=== PATIENT | female | born 1985 | race Caucasian/White ===

== ENCOUNTER 2018-03-23 19:56 | Emergency (ER) | payer OTHER ==
[2018-03-23] MEDS ORDERED: Acetaminophen TAB* 325 MG PO ONE (22:09)
[2018-03-23] MEDS ORDERED: Morphine INJ* 4 MG/ML 1 ML SYRINGE (NEW SYRINGE VERSION) IV ONE (22:09)
[2018-03-23] MEDS ORDERED: Ibuprofen TAB* 800 MG PO ONE (22:09)
[2018-03-23] MEDS ORDERED: Levofloxacin 500 MG IVPREMIX(* 500 MG/100 ML BAG IVPB ONE (22:10)
[2018-03-23] MEDS ORDERED: Metoclopramide IV* 5 MG/ML 2 ML VIAL IV SLOW PU ONE (22:10)
--- NOTE | 2018-03-23 22:30 | ED ---
GI/ HPI - HPI Summary HPI Summary: Patient is a 32 y/o F w/ c/o RLQ pain which radiates to the right side of her back. Pain onset yesterday. Fever and N/V are noted to onset today. She denies PSHx of caesarean sections, PMHx of kidney infections. On triage, pain is rated 7/10 and nothing is noted to aggravate/alleviate Sx. Home medications and allergies are reviewed. - History of Current Complaint Chief Complaint: EDAbdPain Time Seen by Provider: 03/23/18 22:02 Stated Complaint: ABD PAIN Hx Obtained From: Patient Hx Last Menstrual Period: 10/24/15 Onset/Duration: Started Hours Ago - fever, nausea, vomiting onset today, Started Days Ago - pain onset yesterday, Still Present Timing: Constant, Lasting Hours - nausea, vomiting, fever, Lasting Days - RLQ pain, back pain Current Severity: Severe - 7/10 Pain Intensity: 7 Location of Pain: Radiates to: - right lower back, RLQ Pain Radiates to: Back - right lower Associated Signs and Symptoms: Positive: Back Pain - right lower, Nausea, Vomiting, Fever, Abdominal Pain - RLQ Aggravating Factor(s): Nothing Alleviating Factor(s): Nothing - Allergy/Home Medications Allergies/Adverse Reactions: Allergies Allergy/AdvReac Type Severity Reaction Status Date / Time No Known Allergies Allergy Verified 03/23/18 20:00 PMH/Surg Hx/FS Hx/Imm Hx Endocrine/Hematology History: Reports: Hx Thyroid Disease - hyperthyroid, Other Endocrine/Hematological Disorders - tHYROID NODULES, 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 , ALL BENIGN Denies: Hx Diabetes, Hx Anemia Cardiovascular History: Denies: Hx Hypertension Respiratory History: Denies: Hx Asthma, Hx Chronic Obstructive Pulmonary Disease (COPD) GI History: Denies: Hx Jaundice, Hx Ulcer History: Denies: Hx Kidney Infection Sensory History: Denies: Hx Contacts or Glasses Opthamlomology History: Denies: Hx Contacts or Glasses Psychiatric History: Reports: Hx Anxiety - Surgical History Surgery Procedure, Year, and Place: 3 C SECTIONS Infectious Disease History: No Infectious Disease History: Denies: Hx Hepatitis, Hx Human Immunodeficiency Virus (HIV), Traveled Outside the [place] in Last 30 Days - Family History Known Family History: Negative: Blood Disorder - Social History Alcohol Use: Rare Substance Use Type: Reports: None Smoking Status (MU): Never Smoked Tobacco Type: Cigarettes Amount Used/How Often: daily Have You Smoked in the Last Year: Yes Review of Systems Positive: Fever Positive: Abdominal Pain - RLQ , Vomiting, Nausea Positive: Other - POSITIVE: right lower back pain All Other Systems Reviewed And Are Negative: Yes Physical Exam - Summary Physical Exam Summary: VITAL SIGNS: Reviewed. GENERAL: Patient is a well-developed and nourished female who is lying comfortable in the stretcher. Patient is not in any acute respiratory distress. Right CVA tenderness HEAD AND FACE: No signs of trauma. No ecchymosis, hematomas or skull depressions. No sinus tenderness. EYES: PERRLA, EOMI x 2, No injected conjunctiva, no nystagmus. EARS: Hearing grossly intact. Ear canals and tympanic membranes are within normal limits. MOUTH: Oropharynx within normal limits. NECK: Supple, trachea is midline, no adenopathy, no JVD, no carotid bruit, no c- spine tenderness, neck with full ROM. CHEST: Symmetric, no tenderness at palpation LUNGS: Clear to auscultation bilaterally. No wheezing or crackles. CVS: tachycardic, S1 and S2 present, no murmurs or gallops appreciated. ABDOMEN: Soft, RLQ tenderness. No signs of distention. No rebound no guarding, and no masses palpated. Bowel sounds are normal. EXTREMITIES: FROM in all major joints, no edema, no cyanosis or clubbing. NEURO: Alert and oriented x 3. No acute neurological deficits. Speech is normal and follows commands. SKIN: Dry and warm Triage Information Reviewed: Yes Vital Signs On Initial Exam: Initial Vitals Temp Pulse Resp BP Pulse Ox 99.4 F 109 18 128/71 100 03/23/18 19:58 03/23/18 19:58 03/23/18 19:58 03/23/18 19:58 03/23/18 19:58 Vital Signs Reviewed: Yes Diagnostics - Vital Signs Vital Signs Temp Pulse Resp BP Pulse Ox 03/23/18 21:48 103.5 F 111 18 116/70 98 03/23/18 19:58 99.4 F 109 18 128/71 100 - Laboratory Result Diagrams: 03/23/18 22:18 03/23/18 22:19 Lab Statement: Any lab studies that have been ordered have been reviewed, and results considered in the medical decision making process. Re-Evaluation - Re-Evaluation First Eval Re-Evaluation Time: 00:16 Change: Improved Comment: patient reports feeling better. She will be discharged to home and was instructed to follow up with PCP in 1-2 days. Patient understands and agrees with this plan. GIGU Course/Dx - Course Assessment/Plan: Patient is a 32 y/o F w/ c/o RLQ pain which radiates to the right side of her back. Pain onset yesterday. Fever and N/V are noted to onset today. She denies PSHx of caesarean sections, PMHx of kidney infections. On triage, pain is rated 7/10 and nothing is noted to aggravate/alleviate Sx. Physical exam showed RLQ and right CVA tenderness as well as tachycardia. During ED course, patient was given morphine 4 mg IV ONCE, reglan 10 mg IV SLOW PU ONCE, levaquin 500 mg IVpremix, lactated Ringers 1840 ml, 30 ml/kg IV WIDE OPEN ONE, motrin tab 800 mg PO ONCE, and Tylenol 975 mg PO ONCE. Bloodwork showed sodium 134, lactic acid .7, AST 12, CRP 23,91, total protein 6.3. UA showed urine protein 1+(30 mg/dl), trace urine ketones, 3+ urine leukocyte esterase, 3+ (>20/hpf) urine WBC, 3+(>10/hpf) urine RBC, urine squamous epith cells were present, urine yeast was present, urine bacteria absent and urine glucose negative. 0016 patient reports feeling better. She will be discharged to home and was instructed to follow up with PCP in 1-2 days. Patient understands and agrees with this plan. Dx of right pyelonenephritis. - Diagnoses Provider Diagnoses: Pyelonephritis Discharge - Sign-Out/Discharge Documenting (check all that apply): Patient Departure - DISCHARGE - Discharge Plan Condition: Stable Disposition: HOME Prescriptions: Ibuprofen TAB* [Motrin TAB* 800 MG] 800 mg PO Q6H PRN #30 tab PRN Reason: Fever/Pain Levofloxacin TAB* [Levaquin TAB*] 500 mg PO DAILY #10 tab oxyCODONE/Acetamin 5/325 MG* [Percocet 5/325 TAB*] 1 tab PO Q6H PRN #14 tab MDD 4 PRN Reason: Pain Patient Education Materials: Kidney Infection (ED) Referrals: Lena Mata NP [Primary Care Provider] - 2 Days Additional Instructions: RETURN TO THE EMERGENCY DEPARTMENT FOR CHANGING OR WORSENING SYMPTOMS. FOLLOW UP WITH PRIMARY CARE PHYSICIAN IN 1-2 DAYS. - Attestation Statements Document Initiated by Scribe: Yes Documenting Scribe: Teja Wiley Provider For Whom Scribe is Documenting (Include Credential): Camden Esparza MD Scribe Attestation: I, Teja Wiley , scribed for Camden Esparza MD on 03/24/18 at 0035.
[2018-03-23 22:31] LABS: ABS Basophils 0 10^3/ul (0-0.2); ABS Eosinophils 0 10^3/ul (0-0.6); ABS Lymphocytes 0.5 10^3/ul (1.0-4.8); ABS Monocytes 0.9 10^3/ul (0-0.8); ABS Neutrophils 9.4 10^3/ul (1.5-7.7); ABS Nucleated RBC 0 10^3/ul; Eosinophil % 0 % (0-6); Hematocrit 35 % (35-47); Hemoglobin 12.1 g/dl (12.0-16.0); Lymphocyte % 4.9 % (25-47); Mean Corpuscular HGB Conc 35 g/dl (31-36); Mean Corpuscular Hemoglobin 29 pg (27-31); Mean Corpuscular Volume 84 fL (80-97); Mean Platelet Volume 8.7 um3 (7.4-10.4); Nucleated Red Blood Cells % 0; Platelet Count 155 10^3/ul (150-450); Red Blood Count 4.14 10^6/ul (4.00-5.40); Red Cell Distribution Width 13 % (10.5-15); White Blood Count 10.8 10^3/ul (3.5-10.8)
[2018-03-23 22:42] LABS: Urine Appearance Cloudy; Urine Blood Negative (Negative); Urine Color Yellow; Urine Ketones Trace (Negative); Urine Protein 1+(30 mg/dL) (Negative); Urine Red Blood Cell 3+(>10/hpf) (Absent); Urine Specific Gravity 1.014 (1.010-1.030); Urine Urobilinogen Negative (Negative); Urine White Blood Cell 3+(>20/hpf) (Absent)
[2018-03-23 22:50] LABS: EGFR Non-African American 79.1 (>60)
[2018-03-23] MEDS: Lactated Ringers 1000 ml Bag*IV.FLUID IV ONE (23:08)
[2018-03-24 00:31] VITALS: BP 102/56
--- NOTE | 2018-03-24 12:42 | ED ---
Progress - Progress Note Progress Note: Patient's preliminary anaerobic blood culture reveals gram-negative bacilli. Spoke with microbiology staff who report her aerobic blood culture has not completed it's cycle yet however her urine culture is revealing gram-negative bacteria. Lab feels this is a positive finding despite the results of the 2nd bottle. She was seen last night and diagnosed with pyelonephritis. She received a course of Levaquin IV here and sent home with PO antibiotics. There is concern for septic infection. Attempted to contact patient - no answer so left message to call. Then attempted to contact patient's next of kin (Judy, mom) - no answer, so left message to call here as well. Will mail letter as well. hospital television rental clerknadeen trevizo. Re-Evaluation - Re-Evaluation First Eval Re-Evaluation Time: 00:16 Change: Improved Comment: patient reports feeling better. She will be discharged to home and was instructed to follow up with PCP in 1-2 days. Patient understands and agrees with this plan. Course/Dx - Diagnoses Provider Diagnoses: Pyelonephritis Discharge - Sign-Out/Discharge Documenting (check all that apply): Post-Discharge Follow Up - Discharge Plan Condition: Stable Disposition: HOME Prescriptions: Ibuprofen TAB* [Motrin TAB* 800 MG] 800 mg PO Q6H PRN #30 tab PRN Reason: Fever/Pain Levofloxacin TAB* [Levaquin TAB*] 500 mg PO DAILY #10 tab oxyCODONE/Acetamin 5/325 MG* [Percocet 5/325 TAB*] 1 tab PO Q6H PRN #14 tab MDD 4 PRN Reason: Pain Patient Education Materials: Kidney Infection (ED) Referrals: Lena Mata NP [Primary Care Provider] - 2 Days Additional Instructions: RETURN TO THE EMERGENCY DEPARTMENT FOR CHANGING OR WORSENING SYMPTOMS. FOLLOW UP WITH PRIMARY CARE PHYSICIAN IN 1-2 DAYS. - Billing Disposition and Condition Condition: STABLE Disposition: Home
== END 2018-03-24 00:37 | disposition home or self-care (01) ==
LOC: ED 19:56
DX: N12 Tubulo-interstitial nephritis, not specified as acute or chronic (principal); R42 Dizziness and giddiness; R53.1 Weakness; M54.9 Dorsalgia, unspecified; R50.9 Fever, unspecified
CPT/HCPCS: 36415; 80053; 81003; 81015; 83605; 85025; 86140; 87040; 87077; 87086; 87186; 87205; 96365; 96366; 99284; A9270-GY; J1956; J2270; J2765

== ENCOUNTER 2018-03-24 13:41 | Inpatient (IN) | payer OTHER ==
[2018-03-24] MEDS ORDERED: NS 0.9% 1000 ML*IV.FLUID IV ONE (14:06)
[2018-03-24] MEDS ORDERED: cefTRIAXone(*) 1 GM in NS 0.9% 50 ML* 50 ML IVPB ONE (14:06)
[2018-03-24] MEDS ORDERED: Morphine INJ* 4 MG/ML 1 ML SYRINGE (NEW SYRINGE VERSION) IV ONE (14:23)
[2018-03-24] MEDS ORDERED: Ondansetron INJ* 2 MG/ML VIAL IV ONE (14:23)
--- NOTE | 2018-03-24 14:26 | ED ---
Sepsis HPI - HPI Summary HPI Summary: Patient was called to return to the ED for positive blood culture findings. She was found to have gram-negative bacteria in her anaerobic blood culture from last night. Last night, she was diagnosed with right-sided pyelonephritis , provided w/ IV fluids, IV levaquin and discharged home with Levaquin by mouth. She reports she was also given oxycodone for pain which she has not taken since this morning. She reports pain a 6 out of 10 at this current time as well as chills with rigors. Has not had ibuprofen or acetaminophen prior to arrival. Has had decreased appetite but no gemma vomiting or diarrhea. When called to return to ED today, she reports dizziness and generalized weakness. Leading up to sx, she reports urinary frequency past few days as her only symptom however no abdominal pain, dysuria or hematuria and no procedures (ie. urinary catheterization, etc). She reports she came in last night with sx of RLQ pain radiating to flank as well as N/V and fever which started yesterday prior to arrival. No known h/o UTI/urinary tract stones. Last ate at 11:00am (bagel) H/o w/ tubal ligation and no difficulty with anesthesia Denies cardiac, pulmonary and/or hematologic d/o Has a partial dental piece - History of Current Complaint Chief Complaint: EDGeneral Time Seen by Provider: 03/24/18 14:02 Stated Complaint: + SEPSIS Hx Obtained From: Patient, Family/Pharmacy Picking Technician - mom Hx Last Menstrual Period: 10/24/15 Pain Intensity: 6 - Allergy/Home Medications Allergies/Adverse Reactions: Allergies Allergy/AdvReac Type Severity Reaction Status Date / Time No Known Allergies Allergy Verified 03/24/18 13:51 PMH/Surg Hx/FS Hx/Imm Hx Previously Healthy: Yes Endocrine/Hematology History: Reports: Hx Thyroid Disease - hyperthyroid, Other Endocrine/Hematological Disorders - tHYROID NODULES, 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 , ALL BENIGN Denies: Hx Diabetes, Hx Anemia Cardiovascular History: Denies: Hx Congenital Heart Disease, Hx Hypertension, Hx Myocardial Infarction, Hx Valvular Heart Disease Respiratory History: Denies: Hx Asthma, Hx Chronic Obstructive Pulmonary Disease (COPD) GI History: Denies: Hx Jaundice, Hx Ulcer History: Denies: Hx Kidney Infection, Hx Kidney Stones Sensory History: Denies: Hx Contacts or Glasses Opthamlomology History: Denies: Hx Contacts or Glasses Psychiatric History: Reports: Hx Anxiety - Surgical History Surgery Procedure, Year, and Place: 3 C SECTIONS, tubal ligation Infectious Disease History: No Infectious Disease History: Denies: Hx Hepatitis, Hx Human Immunodeficiency Virus (HIV), Traveled Outside the [place] in Last 30 Days - Family History Known Family History: Positive: Other - uncle w/ uric acid kidney stones Negative: Blood Disorder - Social History Lives: With Family Alcohol Use: Occasionally Hx Substance Use: No Substance Use Type: Reports: None Hx Tobacco Use: Yes Smoking Status (MU): Current Every Day Smoker Type: Cigarettes Amount Used/How Often: daily Length of Time of Smoking/Using Tobacco: 1/2PPD Have You Smoked in the Last Year: Yes Review of Systems Positive: Fever, Chills, Fatigue Eyes: Negative ENT: Negative Cardiovascular: Negative Respiratory: Negative Gastrointestinal: Other - reduced appetite Positive: Abdominal Pain, Nausea. Negative: Vomiting, Diarrhea Positive: see HPI Musculoskeletal: Negative Skin: Negative Neurological: Negative Psychological: Normal All Other Systems Reviewed And Are Negative: Yes Physical Exam Triage Information Reviewed: Yes Vital Signs On Initial Exam: Initial Vitals Temp Pulse Resp BP Pulse Ox 98.3 F 96 17 95/55 97 03/24/18 13:48 03/24/18 13:48 03/24/18 13:48 03/24/18 13:48 03/24/18 13:48 Vital Signs Reviewed: Yes Appearance: Positive: Well-Nourished, Ill-Appearing - pt is wrapped in mulitple blankets w/ rigors Skin: Positive: Warm, Skin Color Reflects Adequate Perfusion, Dry - feverish to touch Head/Face: Positive: Normal Head/Face Inspection Eyes: Positive: Normal, EOMI, Conjunctiva Clear ENT: Positive: Normal ENT inspection, Hearing grossly normal, Pharynx normal - mucosa moist Neck: Positive: Supple, Nontender Respiratory/Lung Sounds: Positive: Clear to Auscultation, Breath Sounds Present. Negative: Rales, Rhonchi, Wheezes Cardiovascular: Positive: Tachycardia, S1, S2. Negative: Murmur, Rub Abdomen Description: Positive: No Organomegaly, Soft, Other: - Rt side TTP - refrained from Rt CVA tapping as she admits this Diagnostics - Vital Signs Vital Signs Temp Pulse Resp BP Pulse Ox 03/24/18 13:48 98.3 F 96 17 95/55 97 - Laboratory Result Diagrams: 03/24/18 14:43 03/24/18 14:43 Lab Statement: Any lab studies that have been ordered have been reviewed, and results considered in the medical decision making process. Sepsis Re-assessment - Sepsis Re-Assessment First Eval Patient's Vitals Signs: Vital Signs Temp Pulse Resp BP Pulse Ox 03/24/18 15:39 106 F 03/24/18 15:17 123 26 110/64 92 03/24/18 14:36 124 18 118/68 95 03/24/18 13:48 98.3 F 96 17 95/55 97 Course/Dx - Course Course Of Treatment: Patient was called to return to the emergency department after blood cultures revealed gram-negative bacteria on her anaerobic blood cx from last night. She was seen with right lower quadrant and Rt flank pain and diagnosed with pyelonephritis. She received one course of IV Levaquin here along with IV fluids last night and reported feeling better after treatments and was sent home w/ PO levaquin and oxycodone. Today, she reports feeling dizzy and weak. Upon arrival she is found to have low blood pressure, normal HR in triage but tachycardic upon auscultation. Delayed cardiopulm monitoring. No fever at triage as well however this was repeated after pt had rigors - jumped to 106F. She reports feeling better at that time w/ morphine, IV fluids and anbx on board. PO meds were held in the event she needed surgery. She was initiated with sepsis protocol upon arrival (i.e. 30 cc/kg normal saline, IV antibiotics, labs). Antibiotic of choice was ceftriaxone given her history however with her fever jumping to 106 and her white count being elevated today from normal limits to 13, Zosyn was added to her regimen (discussed w/ Vasyl Sandoval NP). Toradol held d/t risk of kidney injury and acetaminophen held until cleared for PO w/ sips of water by Dr. Christie as there was high clinical suspicion for possible need of surgical intervention. Her CT abdomen and pelvis reveals a 1.7 cm stone at the UPJ of the right kidney. There is also gas in the bladder and the right renal collecting system along with confirmed pyelonephritis. This was discussed with Dr. Christie. Then discussed with Dr. Rm who does not feel a stent will be effective at this time. Returned call to Dr. Christie requesting percutaneous nephrostomy. Patient will also be admitted to the ICU. Dr. Mayorga and Vasyl Sandoval NP aware. Pt in gaurded/ improved condition at time of transition of care - she is alert, oriented and comfortable however HR remains in the 120's. BP has improved s/p fluids and we' re hoping fever reduces with acetaminophen and drainage of infection. Labs: WBC 13.4, Hgb 11.7, platelets 137, neutrophil percent 89.6, lymph percent 4.9, absolute neuts 12, absolute lymphs 0.7, INR 1.5, APTT 31.2, electrolytes within normal limits with the exception of calcium 8.4. AST 12, lactic acid 2.1, C- reactive protein 132.85, total protein 6.1. UA reveals yellow, turbid urine with a pH of 5.0 and specific gravity of 1.016. Urine protein 2+, negative ketones, 1+ blood negative nitrates/bilirubin/euro bill, 2+ leukocytes, 3+ to be BCs, 3+ RBCs,'s, cells present, bacteria absent, glucose negative. During patient's course of care here, her labs from yesterday were checked. Her preliminary urine culture reveals 10-25,000 Escherichia coli. Critical care time: 45 minutes - Differential Dx/Clinical Impression Provider Diagnosis: Sepsis, Calculus of right kidney, Emphysematous pyelonephritis of right kidney Discharge - Sign-Out/Discharge Documenting (check all that apply): Patient Departure - Discharge Plan Condition: Guarded Disposition: ADMITTED TO [facility] - Billing Disposition and Condition Condition: GUARDED Disposition: Admitted to [facility]
[2018-03-24 14:28] LABS: Urine Appearance Turbid; Urine Blood 1+ (Negative); Urine Color Yellow; Urine Ketones Negative (Negative); Urine Protein 2+(100 mg/dL) (Negative); Urine Red Blood Cell 3+(>10/hpf) (Absent); Urine Specific Gravity 1.016 (1.010-1.030); Urine Urobilinogen Negative (Negative); Urine White Blood Cell 3+(>20/hpf) (Absent)
[2018-03-24 14:51] LABS: ABS Basophils 0 10^3/ul (0-0.2); ABS Eosinophils 0 10^3/ul (0-0.6); ABS Lymphocytes 0.7 10^3/ul (1.0-4.8); ABS Monocytes 0.7 10^3/ul (0-0.8); ABS Nucleated RBC 0 10^3/ul; Eosinophil % 0.1 % (0-6); Hematocrit 35 % (35-47); Hemoglobin 11.7 g/dl (12.0-16.0); Lymphocyte % 4.9 % (25-47); Mean Corpuscular HGB Conc 34 g/dl (31-36); Mean Corpuscular Hemoglobin 29 pg (27-31); Mean Corpuscular Volume 86 fL (80-97); Mean Platelet Volume 8.7 um3 (7.4-10.4); Nucleated Red Blood Cells % 0.1; Platelet Count 137 10^3/ul (150-450); Red Blood Count 4.03 10^6/ul (4.00-5.40); Red Cell Distribution Width 13 % (10.5-15); White Blood Count 13.4 10^3/ul (3.5-10.8)
[2018-03-24 15:01] LABS: INR 1.5 (0.77-1.02)
--- NOTE | 2018-03-24 15:23 | RAD ---
CLINICAL HISTORY: Right flank pain COMPARISON: None TECHNIQUE: Noncontrast CT examination of the abdomen and pelvis from the lung bases through the initial tuberosities. FINDINGS: VISUALIZED LUNG BASES: The visualized lung bases are grossly clear. There is no pleural effusion. Along the inferior margin of the right breast there is an asymmetric 1.3 cm subcutaneous nodule with a Hounsfield unit measuring 17 consistent with fluid (image 12). ABDOMEN AND PELVIS: Evaluation of the solid organs and vasculature is limited without intravenous contrast. The liver, spleen, pancreas and adrenal glands are grossly normal in appearance. The gallbladder is normal. At the left kidney there is a lower pole nonobstructing calcification measuring 2 mm in greatest axial dimension. There is no left-sided hydronephrosis. There is a moderate degree of hydronephrosis at the right kidney. At the superior ureter just beyond the ureteropelvic junction there is a conglomeration of calcification measuring approximately 10 x 11 mm in the axial plane and 17 mm in the cephalocaudal dimension. At the renal pelvis there is foci of gas (axial image 75 and coronal image 41). In the lower pole collecting system of the right kidney there are additional more amorphous calcifications. There is no calcification seen more distally in either ureter or in the urinary bladder. Depicted better in the sagittal plane there is nondependent gas in the urinary bladder (sagittal image 70 and axial image 161). The small and large bowel are not distended.The patient's normal appendix is identified in the right lower quadrant. There is no gross retroperitoneal or mesenteric lymphadenopathy. The pelvic viscera is normal in appearance. The abdominal aorta and iliac arteries are normal in course and diameter. There are no sinister bone lesions. IMPRESSION: 1. There is a moderate degree of right-sided hydronephrosis with a conglomeration of calcification just below the ureteropelvic junction measuring 10 x 11 mm in the axial plane and 17 mm in the cephalocaudal dimension. At the right renal pelvis there are foci of gas and there is also foci of gas in the nondependent lumen of the urinary bladder. The latter finding raises concern for cystitis and pyelonephritis associated with obstructive urinary calculi. 2. Along the inferior margin of the right breast at the 6:00 position there is a 1.3 cm subcutaneous low-attenuation nodule. A benign etiology such as a sebaceous cyst or galactocele is favored. On a nonemergent basis further characterization can be made with ultrasound. Findings were discussed over the telephone with MARIA M James at 1510 hours on March 24, 2018.
[2018-03-24 15:34] LABS: EGFR Non-African American 82.5 (>60)
[2018-03-24] MEDS ORDERED: Acetaminophen TAB* 325 MG PO ONE (15:39)
[2018-03-24] MEDS ORDERED: Piperacillin/Tazobac ADVAN(*) 3.375 GM in NS 0.9% 100 ML* 100 ML IVPB ONE ×2 (15:43→16:27)
[2018-03-24] MEDS ORDERED: Naloxone* 0.4 MG/ML 1 ML VIAL ONE (15:58)
[2018-03-24] MEDS ORDERED: fentaNYL* 50 MCG/ML 5 ML VIAL (250 MCG VIAL) ONE (15:58)
[2018-03-24] MEDS ORDERED: Morphine VIAL* 4 MG/ML VIAL (1 ml vial) IV PRN (16:27)
[2018-03-24] MEDS ORDERED: Ondansetron INJ* 2 MG/ML VIAL IV PRN (16:27)
[2018-03-24] MEDS ORDERED: NS 0.9% 1000 ML* 1,000 ML IV SCH ×2 (16:30→20:45)
[2018-03-24] MEDS ORDERED: Zosyn per Pharmacy* NOTE FOLLOW UP SCH (17:00)
--- NOTE | 2018-03-24 17:46 | RAD ---
CPT II Codes: G9500 PERCUTANEOUS NEPHROSTOMY TUBE PLACEMENT WITH SONOGRAPHIC AND FLUOROSCOPIC GUIDANCE. INDICATION: Obstructive right-sided hydronephrosis with signs of pyelonephritis COMPARISON: CT abdomen pelvis dated March 24, 2018 FLUOROSCOPY TIME: 22 seconds ANESTHESIA AND OTHER PERIOPERATIVE MEDICATIONS: 1% lidocaine locally. Conscious sedation provided by intravenous fentanyl. Continuous cardiopulmonary monitoring was provided by Dr. Christie and IR nursing staff. PROCEDURE NOTE AND IMAGING FINDINGS: The benefits and risks of the procedure explained to the patient. The patient consented to the procedure. The patient was positioned on the fluoroscopy table in the prone position. Preliminary sonographic exam demonstrates a largely dilated right renal collecting system corresponding to the same day CT imaging. Color flow analysis does not show any pulsating arteries in the intended percutaneous percutaneous nephrostomy catheter tract or in the immediate vicinity of the planned drain placement. A formal time out was preformed with the technologist and nursing staff. The intended percutaneous nephrostomy catheter site was prepped and draped in the usual sterile fashion. The patient was given intravenous sedation and local anesthesia with 1% lidocaine. Using ultrasound guidance lower pole calyx was accessed percutaneously with an 18-gauge needle. An ultrasound image was saved confirming correct positioning of the needle tip in the calyx. Under fluoroscopic control a 0.035 inch Amplatz wire was advanced into the renal collecting system under fluoroscopic control. The needle was removed and an 8-Wolof pigtail drainage catheter was inserted into the kidney over the wire under fluoroscopic control. The stiffener and Amplatz were removed and urine was observed draining from the pigtail drainage catheter. A 50 mL urine sample was gently aspirated, capped in a sterile container and sent to the laboratory for analysis. After gently draining as much urine from the collecting system as could easily be expressed dilute contrast was injected to perform a nephrostogram which depicted a severe degree of hydronephrosis. No contrast was seen passing beyond the right UPJ stone. The pigtail loop was correctly positioned in the collecting system, a final nephrostogram confirmed appropriate position, the loop was secured and the catheter was connected to a drainage bag. A "pursestring suture" was tied around the catheter exit site and the suture was then tied to the exiting catheter according to a "Joey sandal" configuration. The site was dressed with sterile gauze and Tegaderm. The patient tolerated the procedure well without incident. The patient was transferred to the ICU in stable condition. IMPRESSION: Uncomplicated placement of an 8 Wolof percutaneous nephrostomy catheter into the right with ultrasound and fluoroscopic guidance as described in the report. PLAN: 1. Percutaneous nephrostomy catheter to gravity. 2. Monitor drain output. 3. Follow-up laboratory samples. 4. Urologic surgery will be evaluating the patient for an upcoming lithotripsy procedure I which time is anticipated the percutaneous approximately catheter will likely be removed.
[2018-03-24 18:23] LABS: Urine Appearance Turbid; Urine Blood 3+ (Negative); Urine Ketones Negative (Negative); Urine Protein 2+(100 mg/dL) (Negative); Urine Red Blood Cell 3+(>10/hpf) (Absent); Urine Specific Gravity 1.006 (1.010-1.030); Urine Urobilinogen Negative (Negative); Urine White Blood Cell 3+(>20/hpf) (Absent)
[2018-03-24 18:24] LABS: Urine Color Red
[2018-03-24] MEDS ORDERED: NS 0.9% 1000 ML* 1,000 ML IV ONE (18:40)
[2018-03-24] MEDS ORDERED: Ibuprofen TAB* 600 MG PO ONE (18:40)
[2018-03-24] MEDS ORDERED: Ketorolac INJ* 15 MG/ML 1 ML VIAL IV PUSH ONE (18:43)
[2018-03-24] MEDS ORDERED: Ketorolac INJ* 15 MG/ML 1 ML VIAL ONE (18:44)
[2018-03-24] MEDS: ZOSYN 3.375 GM Q8H per EXTENDED INFUSION IVPB SCH ×2 (20:04)
[2018-03-24] MEDS: Acetaminophen TAB* 325 MG PO PRN (21:17)
--- NOTE | 2018-03-24 23:02 | HP ---
CC: Dr. Christie; Dr. Freeman * HISTORY AND PHYSICAL: DATE OF ADMISSION: 03/24/18 PRIMARY CARE PROVIDER: None. ATTENDING PHYSICIAN WHILE IN THE HOSPITAL: Nigel Mayorga MD * (report dictated by Joey Sandoval NP). CONSULTING INTERVENTIONAL RADIOLOGIST: Dr. Christie. CONSULTING ID SPECIALIST: Dr. Freeman. CONSULTING UROLOGIST: Dr. Rm. CHIEF COMPLAINT: Flank pain, right-sided. HISTORY OF PRESENT ILLNESS: Mrs. Bearden is a 32-year-old female patient. She states over the last couple of days she has had a progressive worsening right- sided flank pain. She said it was a sudden onset. She states that she has been having chills and she has been having urinary frequency and associated nausea. She was concerned because the discomfort just was not getting any better. She actually came here to the ER last night. Blood cultures had been obtained. She was evaluated here. Her blood cultures came back positive. She was called back to the ED today. She states she has been having a significant amount of pain there. She states that she has been nauseated. She has not been vomiting, but the pain is mostly on the right flank radiating into the front of her abdomen. She states that she has had fever. She had a documented fever here of 106. She did vomit. She was sent home on Levaquin and Zofran, but despite this and the fact that she had positive blood cultures, she was called back. Imaging was obtained today and it did show an obstructive stone on the right side and it was felt that she would require percutaneous nephrostomy, which is undergoing right now. We were asked to evaluate for admission. PAST MEDICAL HISTORY: Significant for she has some thyroid disorder, but otherwise she states she is healthy. PAST SURGICAL HISTORY: She has had 3 C-sections and tubal ligation. HOME MEDICATIONS: She normally does not take meds routinely, but she was discharged yesterday on: 1. Motrin 800 mg every 6 hours as needed. 2. Levaquin 500 mg daily. 3. Percocet 1 tablet every 6 hours as needed. ALLERGIES TO MEDICATIONS: Include no known drug allergies. FAMILY HISTORY: She states bother her parents are healthy. I specifically asked her if there was any history of heart disease, cancers, diabetes or strokes, she denied. SOCIAL HISTORY: She is a half a pack a day smoker. She has been smoking for about 15 years. She rarely drinks alcohol. Surrogate decision maker is her mother. She denies recreational drug abuse. REVIEW OF SYSTEMS: There is a documented fever here. She denies having any significant weight change. There is no double vision. She denies having any ear discharge. There is no rhinorrhea. Denies having any sore throat. There is no thyroid enlargement. She denied having any chest pain. There is no orthopnea. There is no nocturnal dyspnea. There is abdominal pain and right- sided flank pain per my HPI. There is urinary frequency. She denied any dysuria. No hesitancy. No seizure, no pruritus, no skin ulcerations, and no loss of consciousness. Review of 14 systems was completed, all others are negative. PHYSICAL EXAMINATION GENERAL: At this time, Ms. Bearden is a 32-year-old female patient, she is sitting in the ED stretcher. She appears to be well nourished, well developed. She does not appear to be in any acute distress. VITAL SIGNS: Blood pressure 120/63, pulse 130, respirations 18, O2 sat 98%, temperature 106. HEENT: Head: Atraumatic, normocephalic. Eyes: EOMs are intact. Sclerae anicteric and not pale. Throat: Oral mucosa appears to be dry. No oropharyngeal erythema. NECK: Supple. LUNGS: Clear to auscultation bilaterally. No wheezes, rales or rhonchi. HEART: Sounds S1, S2. She is tachycardic. No murmurs, rubs or gallops. ABDOMEN: Soft, flat. There is tenderness in the right lower quadrant and there is also right-sided CVA tenderness. Bowel sounds present. EXTREMITIES: Pulses are 2+ throughout. She is moving all 4 extremities, 5/5 strength. NEUROLOGICAL: She is awake, alert, oriented x3. Tongue is midline. Stakeholder Manager are equal. No gross focal deficits. SKIN: Grossly intact. DIAGNOSTIC STUDIES/LAB DATA: Labs: WBC of 13.4, RBC of 4.03, hemoglobin of 11.7, hematocrit 35, platelet count 137. INR 1.50, PTT of 31.2. Sodium 136, potassium of 3.9, chloride of 102, bicarb 25, BUN 12, creatinine of 0.81, glucose was 81, lactic 2.1, calcium 8.4. Total bili 0.5, AST 12, ALT 7, alk phos 50. Troponin 0.01. CRP of 132. Urine showed 2+ protein, 1+ blood, 2+ leukocyte esterase, 3+ wbc's, 3+ rbc's. She did have an abdominal pelvis CT obtained today. Impression: There is a moderate degree of right-sided hydronephrosis with a conglomeration of calcification just below the UPJ measuring 10 x 11 mm in the axial plane, 17 mm in the cephalocaudal dimension. At the right renal pelvis, there are foci of gas and there are also foci of gas in the nondependent lumen of the urinary bladder. The latter findings are concerning for cystitis, pyelonephritis associated with obstructive urinary calculi. Along the inferior margin of the right breast at the 6 o'clock position, there is a 1.3 cm subcutaneous attenuation nodule, benign etiology such as subcutaneous cyst or galactocele is favored on a nonemergent basis. Further characterization could be made with ultrasound. Old medical records reviewed. She had a microbiology as growing out E. coli in the blood and also in the urine. ASSESSMENT AND PLAN: Ms. Bearden is a 32-year-old female patient coming into the ED today with complaints of left-sided flank pain. We were asked to evaluate for admission. She will be admitted under inpatient status for: 1. Sepsis secondary to pyelonephritis with resultant obstructive uropathy secondary to nephrolithiasis. I did touch base with Dr. Rm, who will be evaluating the patient later today or tomorrow, but he recommended given the size of the stone, the stent would not be appropriate. He recommended nephrostomy tube, which the patient is in the IR suite right now with Dr. Christie to undergo this procedure. The plan would be to undergo the nephrostomy tube. I will place her on Zosyn. I will hydrate her aggressively with normal saline. She did get a 30 cc/kg bolus and she also was pancultured already. I will go ahead and continue with p.r.n. Tylenol for the fever and will monitor for signs of worsening sepsis, currently she is in sepsis right now. She does not appear to be in severe sepsis. I do not see any evidence of organ dysfunction, she does not appear to be in septic shock. I will repeat her lactic. We will place her in the ICU to follow her closely. I did touch base with Dr. Freeman. He will evaluate as well for antibiotic management and duration. I will place her on Zosyn again and fluids, and we will follow her closely in the ICU. 2. DVT prophylaxis. I have ordered SCDs. 3. Code status. Full code. 4. Fluids, electrolytes, and nutrition. She is n.p.o. for the procedure. After this, we will go ahead and probably start a regular diet. TIME SPENT: Time spent on the admission was 60 minutes, greater than half of the time spent [id number] with the patient obtaining my history and physical, the other half of the time was spent going over the plan of care with the patient and implementing the plan of care. I did discuss the plan with my attending, Dr. Mayorga; he is in agreement. JOEY SANDOVAL NP [id number]/[facility] #: [id number] DHARA
[2018-03-25] MEDS: Acetaminophen TAB* 325 MG PO PRN ×4 (03:23→23:24)
[2018-03-25] MEDS: ZOSYN 3.375 GM Q8H per EXTENDED INFUSION IVPB SCH ×2 (03:24)
[2018-03-25 05:27] LABS: ABS Basophils 0 10^3/ul (0-0.2); ABS Eosinophils 0 10^3/ul (0-0.6); ABS Lymphocytes 0.5 10^3/ul (1.0-4.8); ABS Monocytes 0.5 10^3/ul (0-0.8); ABS Neutrophils 8.3 10^3/ul (1.5-7.7); ABS Nucleated RBC 0 10^3/ul; Eosinophil % 0.3 % (0-6); Hematocrit 30 % (35-47); Hemoglobin 10.1 g/dl (12.0-16.0); Lymphocyte % 5.4 % (25-47); Mean Corpuscular HGB Conc 34 g/dl (31-36); Mean Corpuscular Hemoglobin 30 pg (27-31); Mean Corpuscular Volume 87 fL (80-97); Mean Platelet Volume 9.4 um3 (7.4-10.4); Nucleated Red Blood Cells % 0.1; Platelet Count 120 10^3/ul (150-450); Red Blood Count 3.41 10^6/ul (4.00-5.40); Red Cell Distribution Width 13 % (10.5-15); White Blood Count 9.4 10^3/ul (3.5-10.8)
[2018-03-25 05:44] LABS: EGFR Non-African American 88.8 (>60)
[2018-03-25 05:47] LABS: INR 1.49 (0.77-1.02)
--- NOTE | 2018-03-25 07:42 | RAD ---
HISTORY: sob COMPARISONS: May 24, 2015 VIEWS: 1: frontal AP view of the chest at 7:06 PM FINDINGS: LINES AND TUBES: None. CARDIOMEDIASTINAL SILHOUETTE: The cardiomediastinal silhouette is normal for portable technique. PLEURA: The costophrenic angles are sharp. No pleural abnormalities are noted. LUNG PARENCHYMA: There is patchy alveolar opacification of the left lung base. ABDOMEN: The upper abdomen is clear. There is no subphrenic gas. BONES AND SOFT TISSUES: No bone or soft tissue abnormalities are noted. IMPRESSION: PATCHY AIRSPACE DISEASE OF THE LEFT LUNG BASE. R1
[2018-03-25] MEDS ORDERED: Ketorolac INJ* 15 MG/ML 1 ML VIAL IV PUSH ONE (08:11)
--- NOTE | 2018-03-25 08:37 | PN ---
Date of Service: 03/25/18 Critical Care Services: 32F presents with e coli bacteremia 2/2 pyelonephritis. Hydronephrosis 2/2 obstructing renal calculus s/p right nephrostomy tube 03/25: feliciano sensitive e coli in culture. complains of flank pain. Vital Signs: Temp Pulse Resp BP SpO2 FiO2 99.5 F 90 20 104/61 99 03/25/18 07:56 03/25/18 07:15 03/25/18 07:15 03/25/18 07:15 03/25/18 07:15 Physical Exam: Gen - nad Heent - ncat, eomi, perrl Neck - no jvd, no thyromegaly CV - s1/s2, tachy, no murmur lungs - cta, no wheeze abd - soft, nt, nd back - +right nephrostomy ext - no cce neuro - non-focal Fluid Balance (Past 24 Hours): I= O= Net Intake & Output 03/23/18 03/24/18 03/25/18 03/26/18 06:59 06:59 06:59 06:59 Intake Total 4834 0 Output Total 1050 Balance 3784 0 Weight 67.5 kg Intake: IV Fluids 4674 NS (0.9%) 2684 IVPB 150 ABX - ZOSYN 150 Oral 10 0 Output: Urine 400 Nephrostomy #1 650 Labs: Laboratory Results - last 24 hr 03/24/18 03/24/18 03/24/18 14:18 14:43 14:43 WBC 13.4 H RBC 4.03 Hgb 11.7 L Hct 35 MCV 86 MCH 29 MCHC 34 RDW 13 Plt Count 137 L MPV 8.7 Neut % (Auto) 89.6 H Lymph % (Auto) 4.9 L Gordon % (Auto) 5.0 Eos % (Auto) 0.1 Baso % (Auto) 0.4 Absolute Neuts (auto) 12.0 H Absolute Lymphs (auto) 0.7 L Absolute Monos (auto) 0.7 Absolute Eos (auto) 0 Absolute Basos (auto) 0 Absolute Nucleated RBC 0 Nucleated RBC % 0.1 INR (Anticoag Therapy) 1.50 H APTT 31.2 Sodium Potassium Chloride Carbon Dioxide Anion Gap BUN Creatinine Est GFR ( Amer) Est GFR (Non-Af Amer) BUN/Creatinine Ratio Glucose Lactic Acid Calcium Total Bilirubin AST ALT Alkaline Phosphatase Troponin I C-Reactive Protein Total Protein Albumin Globulin Albumin/Globulin Ratio Beta HCG, Quant Urine Color Yellow Urine Appearance Turbid Urine pH 5.0 Ur Specific Qulin 1.016 Urine Protein 2+(100 mg/dl) A Urine Ketones Negative Urine Blood 1+ A Urine Nitrate Negative Urine Bilirubin Negative Urine Urobilinogen Negative Ur Leukocyte Esterase 2+ A Urine WBC (Auto) 3+(>20/hpf) A Urine RBC (Auto) 3+(>10/hpf) A Ur Squamous Epith Cells Present A Urine Bacteria Absent Urine Glucose Negative 03/24/18 03/24/18 03/24/18 14:43 14:43 17:07 WBC RBC Hgb Hct MCV MCH MCHC RDW Plt Count MPV Neut % (Auto) Lymph % (Auto) Gordon % (Auto) Eos % (Auto) Baso % (Auto) Absolute Neuts (auto) Absolute Lymphs (auto) Absolute Monos (auto) Absolute Eos (auto) Absolute Basos (auto) Absolute Nucleated RBC Nucleated RBC % INR (Anticoag Therapy) APTT Sodium 136 Potassium 3.9 Chloride 102 Carbon Dioxide 25 Anion Gap 9 BUN 12 Creatinine 0.81 Est GFR ( Amer) 99.8 Est GFR (Non-Af Amer) 82.5 BUN/Creatinine Ratio 14.8 Glucose 81 Lactic Acid 2.1 H* Calcium 8.4 L Total Bilirubin 0.50 AST 12 L ALT 7 Alkaline Phosphatase 50 Troponin I 0.01 C-Reactive Protein 132.85 H Total Protein 6.1 L Albumin 3.3 Globulin 2.8 Albumin/Globulin Ratio 1.2 Beta HCG, Quant < 0.60 Urine Color Red A Urine Appearance Turbid Urine pH 5.0 Ur Specific Qulin 1.006 L Urine Protein 2+(100 mg/dl) A Urine Ketones Negative Urine Blood 3+ A Urine Nitrate Negative Urine Bilirubin Negative Urine Urobilinogen Negative Ur Leukocyte Esterase 3+ A Urine WBC (Auto) 3+(>20/hpf) A Urine RBC (Auto) 3+(>10/hpf) A Ur Squamous Epith Cells Urine Bacteria Absent Urine Glucose Negative 03/24/18 03/25/18 03/25/18 18:00 05:05 05:05 WBC 9.4 RBC 3.41 L Hgb 10.1 L Hct 30 L MCV 87 MCH 30 MCHC 34 RDW 13 Plt Count 120 L MPV 9.4 Neut % (Auto) 88.6 H Lymph % (Auto) 5.4 L Gordon % (Auto) 5.6 Eos % (Auto) 0.3 Baso % (Auto) 0.1 Absolute Neuts (auto) 8.3 H Absolute Lymphs (auto) 0.5 L Absolute Monos (auto) 0.5 Absolute Eos (auto) 0 Absolute Basos (auto) 0 Absolute Nucleated RBC 0 Nucleated RBC % 0.1 INR (Anticoag Therapy) APTT Sodium 135 Potassium 3.7 Chloride 108 Carbon Dioxide 16 L Anion Gap 11 BUN 11 Creatinine 0.76 Est GFR ( Amer) 107.4 Est GFR (Non-Af Amer) 88.8 BUN/Creatinine Ratio 14.5 Glucose 72 Lactic Acid 1.0 Calcium 7.8 L Total Bilirubin AST ALT Alkaline Phosphatase Troponin I C-Reactive Protein Total Protein Albumin Globulin Albumin/Globulin Ratio Beta HCG, Quant Urine Color Urine Appearance Urine pH Ur Specific Qulin Urine Protein Urine Ketones Urine Blood Urine Nitrate Urine Bilirubin Urine Urobilinogen Ur Leukocyte Esterase Urine WBC (Auto) Urine RBC (Auto) Ur Squamous Epith Cells Urine Bacteria Urine Glucose 03/25/18 05:34 WBC RBC Hgb Hct MCV MCH MCHC RDW Plt Count MPV Neut % (Auto) Lymph % (Auto) Gordon % (Auto) Eos % (Auto) Baso % (Auto) Absolute Neuts (auto) Absolute Lymphs (auto) Absolute Monos (auto) Absolute Eos (auto) Absolute Basos (auto) Absolute Nucleated RBC Nucleated RBC % INR (Anticoag Therapy) 1.49 H APTT Sodium Potassium Chloride Carbon Dioxide Anion Gap BUN Creatinine Est GFR ( Amer) Est GFR (Non-Af Amer) BUN/Creatinine Ratio Glucose Lactic Acid Calcium Total Bilirubin AST ALT Alkaline Phosphatase Troponin I C-Reactive Protein Total Protein Albumin Globulin Albumin/Globulin Ratio Beta HCG, Quant Urine Color Urine Appearance Urine pH Ur Specific Qulin Urine Protein Urine Ketones Urine Blood Urine Nitrate Urine Bilirubin Urine Urobilinogen Ur Leukocyte Esterase Urine WBC (Auto) Urine RBC (Auto) Ur Squamous Epith Cells Urine Bacteria Urine Glucose Studies: CT Abd/pel 03/24 1. There is a moderate degree of right-sided hydronephrosis with a conglomeration of calcification just below the ureteropelvic junction measuring 10 x 11 mm in the axial plane and 17 mm in the cephalocaudal dimension. At the right renal pelvis there are foci of gas and there is also foci of gas in the nondependent lumen of the urinary bladder. The latter finding raises concern for cystitis and pyelonephritis associated with obstructive urinary calculi. 2. Along the inferior margin of the right breast at the 6:00 position there is a 1.3 cm subcutaneous low-attenuation nodule. A benign etiology such as a sebaceous cyst or galactocele is favored. On a nonemergent basis further characterization can be made with ultrasound. CXR 03/24 IMPRESSION: PATCHY AIRSPACE DISEASE OF THE LEFT LUNG BASE. Impression: 32F with severe sepsis 2/2 pyelonephritis, e coli bacteremia, hydronephrosis 2/ 2 obstructing renal calculus Plan: Neuro - pain control CV - bp borderline - iv hydration - levophed if needed Pulm - abnormal cxr - oxygenating well on room air - doubt pna ID - severe sepsis 2/2 e coli bacteremia from pyelonephritis - feliciano sensitive e coli - change zosyn to ceftriaxone - repeat cultures tomorrow - lactate now normal GI - advance diet as tolerated - anti-emetics prn Renal - pyelo 2/2 obstructing renal calculus - s/p nephrostomy tube - urology consult for definitive treatment - monitor i/o Heme - elevated inr - unclear etiology - not on blood thinners - monitor for bleeding Endo - check fs, niss Lines - piv Ppx - gi/dvt Full Code Critical Care Time: 50 mins
[2018-03-25] MEDS: cefTRIAXone(*) 1 GM in NS 0.9% 50 ML* 50 ML IVPB SCH (09:44)
[2018-03-25 13:35] LABS: Hematocrit 33 % (35-47); Hemoglobin 10.9 g/dl (12.0-16.0); Mean Corpuscular HGB Conc 33 g/dl (31-36); Mean Corpuscular Hemoglobin 29 pg (27-31); Mean Corpuscular Volume 88 fL (80-97); Red Blood Count 3.72 10^6/ul (4.00-5.40); Red Cell Distribution Width 13 % (10.5-15); White Blood Count 5.8 10^3/ul (3.5-10.8)
[2018-03-25 13:55] LABS: EGFR Non-African American 97.6 (>60)
[2018-03-25 14:09] LABS: ABS Basophils 0 10^3/ul (0-0.2); ABS Eosinophils 0.1 10^3/ul (0-0.6); ABS Lymphocytes 0.5 10^3/ul (1.0-4.8); ABS Monocytes 0.4 10^3/ul (0-0.8); ABS Neutrophils 4.8 10^3/ul (1.5-7.7); ABS Nucleated RBC 0 10^3/ul; Eosinophil % 1.6 % (0-6); Lymphocyte % 8.7 % (25-47); Nucleated Red Blood Cells % 0; Platelet Count 133 10^3/ul (150-450)
--- NOTE | 2018-03-25 14:24 | CONS ---
CONSULTATION REPORT: DATE OF CONSULT: 03/25/18 REQUESTING PROVIDER: Vasyl Sandoval NP. CONSULTING SERVICE: Infectious Disease. REASON FOR CONSULTATION: E. coli, sepsis. IMPRESSION: 1. Sepsis present on admission. 2. Escherichia coli bacteremia and pyelonephritis with right-sided hydronephrosis due to obstructing ureteral stone, status post percutaneous nephrostomy tube. 3. Leukocytosis, improving. 4. Elevated C-reactive protein. RECOMMENDATION: Agree with ceftriaxone, repeat the blood cultures. She will be seen by Urology. We discussed that pending urology evaluation, she will likely have a few days of IV antibiotics here and to finish her course with oral antibiotics. HISTORY OF PRESENT ILLNESS: This is a 32-year-old woman admitted with right flank pain, fever, rigors, malaise that had developed since Friday. She had blood cultures taken on the 03/23/18, two of four bottles were positive for E. coli, which is pansensitive. The urine culture at that time was pansensitive. She had been started on Levaquin at that point as an outpatient. Because of positive cultures, she was called back to the emergency room and a CT scan showed right- sided hydronephrosis with obstructing ureteral stone. Dr. Christie placed a nephrostomy tube yesterday. The right flank pain is less severe. Her fevers and chills have subsided. She still have sweats and feels malaise. She had been having urinary frequency but no dysuria. Her initial white blood cell count was 13, it is down to 9 today. Her urinalysis show blood, leukocyte esterase, white cells, red cells, no nitrites. She was febrile with 38.4 this morning and 41.3 yesterday afternoon in the ER. She has not had urinary tract infection in the recent past or required hospitalization due to infection. PAST MEDICAL HISTORY: Tobacco abuse. MEDICATIONS: 1. Tylenol. 2. Ibuprofen. 3. Morphine as needed. 4. Zofran as needed. 5. Ceftriaxone 1 g a day. ALLERGIES: No known drug allergies. FAMILY HISTORY: No recurrent infections. SOCIAL HISTORY: She lives in [place]. Lives by herself. Denies injection drugs. REVIEW OF SYSTEMS: All negative except as noted above in the 14-point review of systems. PHYSICAL EXAM: Vital Signs: Temperature is 37.5, heart rate is 90, respiratory rate 18, blood pressure 97/64, oxygen saturation 96% on room air. In general, she is awake, not in distress. Neurologic: She is oriented x3, follows all commands. Moves all extremities. HEENT: There is no conjunctival hemorrhage. Oropharynx without lesions. Neck is supple without mass. Heart: Regular rate and rhythm without murmurs, rubs or gallops. Lungs are clear to auscultation bilaterally. Abdomen: Soft, nontender, and nondistended. There are bowel sounds present. There is a right flank nephrostomy tube with cloudy urine. Skin: There is no rash or splinter hemorrhage. Musculoskeletal: There is no joint synovitis. DIAGNOSTIC STUDIES/LAB DATA: White blood cell count 9, hemoglobin 10, platelets 120. Creatinine 0.7. Lactate 1. CRP 133. Please see impressions and recommendations outlined above. Thank you for asking me to see Ms. Bearden in consultation. [id number]/[facility] #: [id number] MTDD
[2018-03-25] MEDS ORDERED: Ibuprofen TAB* 600 MG PO PRN (16:55)
[2018-03-25] MEDS: oxyCODONE TAB* 5 MG TAB PO PRN (17:08)
[2018-03-26 06:01] LABS: ABS Basophils 0 10^3/ul (0-0.2); ABS Eosinophils 0.1 10^3/ul (0-0.6); ABS Lymphocytes 0.5 10^3/ul (1.0-4.8); ABS Monocytes 0.3 10^3/ul (0-0.8); ABS Neutrophils 2.9 10^3/ul (1.5-7.7); ABS Nucleated RBC 0 10^3/ul; Eosinophil % 1.6 % (0-6); Hematocrit 33 % (35-47); Hemoglobin 11.3 g/dl (12.0-16.0); Lymphocyte % 14.4 % (25-47); Mean Corpuscular HGB Conc 34 g/dl (31-36); Mean Corpuscular Hemoglobin 29 pg (27-31); Mean Corpuscular Volume 85 fL (80-97); Mean Platelet Volume 9.6 um3 (7.4-10.4); Nucleated Red Blood Cells % 0; Platelet Count 111 10^3/ul (150-450); Red Blood Count 3.89 10^6/ul (4.00-5.40); Red Cell Distribution Width 13 % (10.5-15); White Blood Count 3.8 10^3/ul (3.5-10.8)
[2018-03-26 06:08] LABS: INR 1.26 (0.77-1.02)
[2018-03-26 06:23] LABS: EGFR Non-African American 118.9 (>60)
[2018-03-26] MEDS: cefTRIAXone(*) 1 GM in NS 0.9% 50 ML* 50 ML IVPB SCH (08:25)
[2018-03-26] MEDS: Acetaminophen TAB* 325 MG PO PRN ×2 (08:25→17:20)
[2018-03-26] MEDS: oxyCODONE TAB* 5 MG TAB PO PRN ×2 (08:31→17:20)
--- NOTE | 2018-03-26 08:59 | PN ---
Subjective Date of Service: 03/26/18 Interval History: Pt continues to endorse flank pain, only minimally improved since admission. Pain being controlled with oxycodone. Febrile to 102 temporal/99.8 oral. Tylenol given. Urinary frequency has improved since admission. General weakness has improved. Patient endorses being more steady on her feet. Endorses nausea, managed with zofran, but denies vomiting. Has only eaten a few crackers and has not been drinking. Denies chest pain, shortness of breath, dizziness, palpitations. R Nephrostomy tube in place and draining. Objective Active Medications: Acetaminophen (Tylenol Tab*) 650 mg PO Q4H PRN PRN Reason: FEVER/PAIN Last Admin: 03/26/18 08:25 Dose: 650 mg Ceftriaxone Sodium 1 gm/ (Sodium Chloride) 50 mls @ 200 mls/hr IVPB Q24H DUNIA Last Admin: 03/26/18 08:25 Dose: 200 mls/hr Lactated Ringer's (Lactated Ringers 1000 Ml Bag*) 1,000 mls @ 1,000 mls/hr IV .[facility] Last Admin: 03/25/18 12:01 Dose: 1,000 mls/hr Lactated Ringer's (Lactated Ringers 1000 Ml Bag*) 1,000 mls @ 150 mls/hr IV PER RATE [facility] Stop: 03/26/18 14:13 Last Admin: 03/26/18 04:58 Dose: 150 mls/hr Ibuprofen (Motrin Tab*) 600 mg PO Q6H PRN PRN Reason: PAIN Influenza Virus Vaccine (Fluarix *Quad* 2018-*) 0.5 ml IM .ONCE ONE Stop: 03/27/18 09:01 Ondansetron HCl (Zofran Inj*) 4 mg IV Q6H PRN PRN Reason: NAUSEA Last Admin: 03/25/18 14:09 Dose: 4 mg Oxycodone HCl (Roxycodone Tab*) 5 mg PO Q4H PRN PRN Reason: PAIN - MODERATE TO SEVERE Last Admin: 03/26/18 08:31 Dose: 5 mg Vital Signs - 8 hr 03/26/18 03/26/18 03/26/18 01:02 04:52 07:57 Temperature 98.5 F 99.0 F 99.8 F Pulse Rate 92 95 101 Respiratory 16 16 16 Rate Blood Pressure 110/71 121/63 (mmHg) O2 Sat by Pulse 94 92 Oximetry 03/26/18 08:31 Temperature Pulse Rate Respiratory 18 Rate Blood Pressure (mmHg) O2 Sat by Pulse Oximetry Oxygen Devices in Use Now: None Eyes: No Scleral Icterus, PERRLA Ears/Nose/Mouth/Throat: NL Teeth, Lips, Gums, Clear Oropharnyx, Mucous Membranes Moist Neck: NL Appearance and Movements; NL JVP, Trachea Midline Respiratory: Symmetrical Chest Expansion and Respiratory Effort, Clear to Auscultation Cardiovascular: NL Sounds; No Murmurs; No JVD, RRR Abdominal: NL Sounds; No Tenderness; No Distention - Mild tenderness to palpation Extremities: No Clubbing, Cyanosis Skin: No Rash or Ulcers, No Nodules or Sclerosis Neurological: Alert and Oriented x 3 Result Diagrams: 03/26/18 05:50 03/26/18 05:50 Microbiology and Other Data: Microbiology 03/24/18 15:44 Aerobic Blood Culture - Preliminary Blood Venous No Growth Day 1 Anaerobic Blood Culture - Preliminary No Growth Day 1 03/24/18 14:43 Aerobic Blood Culture - Preliminary Blood Venous No Growth Day 1 Anaerobic Blood Culture - Preliminary No Growth Day 1 03/24/18 16:00 Nasal Screen MRSA (PCR) - Final Nasal Mrsa Not Detected Assess/Plan/Problems-Billing Assessment: Pt is a 32 year old female with no significant PMH who presented to the ED with urinary frequency, RLQ pain radiating to the flank, N/V, fever, diagnosed with pyelonephritis, treated with IV Levaquin and IVF in the ED and sent home with PO meds. Called back to the ED when blood culture came back with gram negative bacteria. Upon exam in the ED, pt spiked a temp of 106 and developed rigors. Soft BP supported with IVF. CT abd showed 1.7cm stone at UPJ of right kidney and hydronephrosis. Started on ceftriaxone and zosyn, and admitted to the ICU. Pt underwent percutaneous nephrostomy due to obstructing renal stone. Culture came back feliciano sensitive E.coli and coverage was narrowed to just ceftriaxone. ID following. Urology consult pending. - Patient Problems (1) Pyelonephritis due to Escherichia coli Current Visit: Yes Status: Acute Code(s): N12 - TUBULO-INTERSTITIAL NEPHRITIS, NOT SPCF ACUTE OR CHRONIC; B96.20 - UNSP ESCHERICHIA COLI THE CAUSE OF DISEASES [facility]SD [facility] SNOMED Code(s): 29465919 Comment: - s/p R nephrostomy tube placement. Tube is in place, with dressing CDI. Draining 265mL so far today. Urology is following. Reccomends outpatient follow up. - Patient reports her pain and nausea are not much improved since admission, however anticipate this improving as pt continues antibiotic course, however if pain/nausea do not improve consider broadening coverage (ID following). Continue management of paina and nauseas with 5mg oxycodone PRN and zofran 4mg PRN. - Continue ceftriaxone 1g Q24H for pansensitive e. coli pyelonephritis (day 3). ID agrees with abx choice and is following as well. Plan for a few days of IV antibiotics then transition to PO. - Repeat blood cultures today. - WBC trending down. 3.8 today from 13.4 on admission. - Fever to 102 (temporal) but 99.8 oral. No rigors. Pt given tylenol. - Pt oral intake is poor, so continue LR at 150ml/hr. BP trending in low 100s/ 60s-70s with MAPs > 65 (2) Bacteremia due to Escherichia coli Current Visit: Yes Status: Acute Code(s): R78.81 - BACTEREMIA SNOMED Code( s): 611445035267 Comment: - Management as above. Repeat culture pending. (3) Thrombocytopenia Current Visit: Yes Status: Acute Code(s): D69.6 - THROMBOCYTOPENIA, UNSPECIFIED SNOMED Code(s): 319747789 Comment: - Plt 111. In the setting of sepsis. (4) DVT prophylaxis Current Visit: Yes Status: Acute Code(s): UAG4988 - SNOMED Code(s): 803532855 Comment: - Pt is at low risk for DVT and is ambulatory (5) Full code status Current Visit: Yes Status: Acute Code(s): Z78.9 - OTHER SPECIFIED HEALTH STATUS SNOMED Code(s): 145842605 Status and Disposition: Inpatient. Plan to discharge to home when medically stable. Attending: Jaycee Blanco
[2018-03-27] MEDS: oxyCODONE TAB* 5 MG TAB PO PRN ×3 (00:41→21:24)
[2018-03-27 05:30] LABS: ABS Basophils 0 10^3/ul (0-0.2); ABS Eosinophils 0.1 10^3/ul (0-0.6); ABS Lymphocytes 0.6 10^3/ul (1.0-4.8); ABS Monocytes 0.3 10^3/ul (0-0.8); ABS Neutrophils 2.8 10^3/ul (1.5-7.7); ABS Nucleated RBC 0 10^3/ul; Eosinophil % 1.9 % (0-6); Hematocrit 30 % (35-47); Hemoglobin 10.4 g/dl (12.0-16.0); Mean Corpuscular HGB Conc 35 g/dl (31-36); Mean Corpuscular Hemoglobin 29 pg (27-31); Mean Corpuscular Volume 84 fL (80-97); Mean Platelet Volume 9.8 um3 (7.4-10.4); Nucleated Red Blood Cells % 0; Platelet Count 128 10^3/ul (150-450); Red Blood Count 3.58 10^6/ul (4.00-5.40); Red Cell Distribution Width 13 % (10.5-15); White Blood Count 3.8 10^3/ul (3.5-10.8)
[2018-03-27 05:38] LABS: INR 1.1 (0.77-1.02)
[2018-03-27] MEDS: cefTRIAXone(*) 1 GM in NS 0.9% 50 ML* 50 ML IVPB SCH (09:43)
--- NOTE | 2018-03-27 10:16 | PN ---
Subjective Date of Service: 03/27/18 Interval History: Pt looks much better than yesterday. Reports flank pain is much improved and has not required pain medication today. Reports good oral intake of fluids and ate breakfast, which she had not been doing. Denies N/V. Does endorse diarrhea, about five episodes today. Still reports some general swelling from IVF, which has been discontinued. Objective Active Medications: Acetaminophen (Tylenol Tab*) 650 mg PO Q4H PRN PRN Reason: FEVER/PAIN Last Admin: 03/26/18 17:20 Dose: 650 mg Ceftriaxone Sodium 1 gm/ (Sodium Chloride) 50 mls @ 200 mls/hr IVPB Q24H DUNIA Last Admin: 03/27/18 09:43 Dose: 200 mls/hr Lactated Ringer's (Lactated Ringers 1000 Ml Bag*) 1,000 mls @ 75 mls/hr IV PER RATE [facility] Stop: 03/27/18 15:59 Last Admin: 03/27/18 03:47 Dose: 75 mls/hr Ibuprofen (Motrin Tab*) 600 mg PO Q6H PRN PRN Reason: PAIN Ondansetron HCl (Zofran Inj*) 4 mg IV Q6H PRN PRN Reason: NAUSEA Last Admin: 03/25/18 14:09 Dose: 4 mg Oxycodone HCl (Roxycodone Tab*) 5 mg PO Q4H PRN PRN Reason: PAIN - MODERATE TO SEVERE Last Admin: 03/27/18 00:41 Dose: 5 mg Vital Signs - 8 hr 03/27/18 03/27/18 03/27/18 02:53 03:21 07:52 Temperature 100.0 F Pulse Rate 99 Respiratory 16 16 16 Rate Blood Pressure 129/79 (mmHg) O2 Sat by Pulse 95 Oximetry 03/27/18 08:15 Temperature 98.9 F Pulse Rate 79 Respiratory 14 Rate Blood Pressure 137/71 (mmHg) O2 Sat by Pulse 93 Oximetry Oxygen Devices in Use Now: None Eyes: No Scleral Icterus, PERRLA Ears/Nose/Mouth/Throat: NL Teeth, Lips, Gums, Mucous Membranes Moist Neck: NL Appearance and Movements; NL JVP, Trachea Midline Respiratory: Symmetrical Chest Expansion and Respiratory Effort, Clear to Auscultation Cardiovascular: NL Sounds; No Murmurs; No JVD, RRR Abdominal: - - NL sounds; No Distention; Mild diffuse abdominal tenderness Extremities: No Clubbing, Cyanosis, - - Trace bilateral upper extremity edema Skin: No Rash or Ulcers, No Nodules or Sclerosis Neurological: Alert and Oriented x 3 Lines/Tubes/Other Access: Clean, Dry and Intact PICC Line Result Diagrams: 03/27/18 04:48 03/26/18 05:50 Microbiology and Other Data: Microbiology 03/24/18 15:44 Aerobic Blood Culture - Preliminary Blood Venous No Growth Day 1 Anaerobic Blood Culture - Preliminary No Growth Day 1 03/24/18 14:43 Aerobic Blood Culture - Preliminary Blood Venous No Growth Day 1 Anaerobic Blood Culture - Preliminary No Growth Day 1 03/24/18 16:00 Nasal Screen MRSA (PCR) - Final Nasal Mrsa Not Detected Assess/Plan/Problems-Billing Assessment: Pt is a 32 year old female with no significant PMH who presented to the ED with urinary frequency, RLQ pain radiating to the flank, N/V, fever, diagnosed with pyelonephritis, treated with IV Levaquin and IVF in the ED and sent home with PO meds. Called back to the ED when blood culture came back with gram negative bacteria. Upon exam in the ED, pt spiked a temp of 106 and developed rigors. Soft BP supported with IVF. CT abd showed 1.7cm stone at UPJ of right kidney and hydronephrosis. Started on ceftriaxone and zosyn, and admitted to the ICU. Pt underwent percutaneous nephrostomy due to obstructing renal stone. Culture came back feliciano sensitive E.coli and coverage was narrowed to just ceftriaxone. ID and Urology following. Urology recommending follow up as outpatient. - Patient Problems (1) Pyelonephritis due to Escherichia coli Current Visit: Yes Status: Acute Code(s): N12 - TUBULO-INTERSTITIAL NEPHRITIS, NOT SPCF ACUTE OR CHRONIC; B96.20 - UNSP ESCHERICHIA COLI THE CAUSE OF DISEASES [facility]SD [facility] SNOMED Code(s): 39626155 Comment: - s/p R percutaneous nephrostomy tube placement. Tube is in place and draining, with dressing CDI. - Per Dr Zuñiga, pt ok to be dicharged to home with PCN drain - Urology is following and will follow up with patient as outpatient regarding lithotripsy, stent, and PCN removal. Unable to make appointment due to pt's insurance, but office is working on obtaining prior authorization and will contact patient to schedule appointment. - Flank pain and nausea are both greatly improved from yesterday and from admission. Pt has not required pain medication today, however continue to have PRN medications on board if needed, 5mg oxycodone PRN and zofran 4mg PRN. - Continue ceftriaxone 1g Q24H for pansensitive e. coli pyelonephritis (day 4). ID agrees with abx choice and is following as well. Anticipate transition to PO antibiotics tomorrow. - Repeat blood cultures from 03/26 with no growth to date - WBC trending down. 3.8 today from 13.4 on admission. - Fever curve downtrending. - Pt oral intake is is improved, so IVF stopped, and BP stable - Likely d/c tomorrow (2) Bacteremia due to Escherichia coli Current Visit: Yes Status: Acute Code(s): R78.81 - BACTEREMIA SNOMED Code( s): 686516389677 Comment: - Management as above. Repeat culture negative to date (3) Thrombocytopenia Current Visit: Yes Status: Acute Code(s): D69.6 - THROMBOCYTOPENIA, UNSPECIFIED SNOMED Code(s): 886160305 Comment: - Improving, Plt 111 yesterday-->128 today. In the setting of sepsis. (4) DVT prophylaxis Current Visit: Yes Status: Acute Code(s): EUH6963 - SNOMED Code(s): 246020679 Comment: - Pt is at low risk for DVT and is ambulatory (5) Full code status Current Visit: Yes Status: Acute Code(s): Z78.9 - OTHER SPECIFIED HEALTH STATUS SNOMED Code(s): 622093745 Status and Disposition: Inpatient. Plan to discharge to home when medically stable.
--- NOTE | 2018-03-27 10:47 | PN ---
Progress Note - Progress Note Date of Service: 03/27/18 SOAP: Subjective: Patient denies pain. "Discomfort" at percutaneous site. PCN putting out clear yellow urine with debris Objective: Selected Entries 03/27/18 08:15 Temperature 98.9 F Temperature Oral Source Pulse Rate 79 Respiratory 14 Rate Blood Pressure 137/71 (mmHg) Blood Pressure 86 Mean O2 Sat by Pulse 93 Oximetry Patient on Room Yes Air Laboratory Tests 03/24/18 03/25/18 03/25/18 14:43 05:05 13:00 WBC 13.4 H 9.4 5.8 03/26/18 03/27/18 05:50 04:48 WBC 3.8 3.8 Adequate UOP from PCN. NAD, AAO X 3 Dressing at catheter exit site is CDI Clear yellow urine in bag No significant right flank tenderness Assessment: 32 YOF status post urgent right PCN placement on 03/24/18 for right septic obstructive uropathy due to 1.7 cm UPJ stone. Plan: 1. Following lithotripsy and right ureteral stent placement with Urology, the PCN can be removed. This will be coordinated with Urology. 2. Drainage bag to gravity. 3. Flush with 10 mL sterile saline BID (continue at home). 4. Patient can be discharged to home with PCN drain.
[2018-03-28] MEDS: cefTRIAXone(*) 1 GM in NS 0.9% 50 ML* 50 ML IVPB SCH (09:26)
[2018-03-28 12:34] VITALS: BP 118/71
[2018-03-28] MEDS ORDERED: Sodium Chloride FLUSH* 10 ML SYRINGE SCH (21:00)
--- NOTE | 2018-03-28 23:05 | DS ---
CC: Dr. Rm * DISCHARGE SUMMARY: DATE OF ADMISSION: 03/24/18 DATE OF DISCHARGE: 03/28/18 PRIMARY CARE PROVIDER: None. UROLOGIST: Dr. Rm. PRINCIPAL DIAGNOSES: 1. Sepsis secondary to E. coli pyelonephritis and bacteremia in the setting of an obstructing right renal stone. 2. E. coli pyelonephritis with obstructing renal stone on the right. 3. E. coli bacteremia. DISCHARGE MEDICATIONS: 1. Ibuprofen 800 mg p.o. q.8 hours p.r.n. pain. 2. Keflex 500 mg p.o. t.i.d. x9 days. HOSPITAL COURSE: Ms. Bearden is a 32-year-old female who initially presented to the emergency room on 03/23/18 with complaints of abdominal pain. At that time, she presented with abdominal pain. She was given IV fluids, antibiotics, and pain medication. Her urinalysis was abnormal. She was diagnosed with pyelonephritis. The patient was sent home with Levaquin. On 03/24/18, blood cultures obtained in the emergency room ultimately came back positive for gram- negative bacilli as did her urine culture. The patient ultimately returned to the emergency room for repeat evaluation. The patient upon return to the emergency room had a mildly elevated white blood cell count of 13.4 thousand. Additionally, she was identified to be quite febrile up to 106.3. CT scan of the abdomen and pelvis revealed a moderate degree of right-sided hydronephrosis with a conglomeration of calcification just below the ureteropelvic junction measuring 10 x 11 mm in the axial plane and 17 mm in the cephalocaudal dimension. At the right renal pelvis, there is foci of gas and also foci of gas in the nondependent lumen of the urinary bladder. The later finding raises concern for cystitis and pyelonephritis associated with obstructive urinary calculi. The patient was also found to have a 1.3 cm subcutaneous low attenuation nodule along the inferior margin of the right breast at the 6 o' clock position. A nonemergent ultrasound can be obtained to further characterize this lesion. Because of the sepsis associated with pyelonephritis and gram-negative bacteremia, the patient was admitted to the hospital. She received aggressive IV fluid hydration and antibiotic therapy. The patient was seen by Dr. Freeman. Ultimately, her urine and blood cultures grew pansensitive E. coli. The patient was treated with ceftriaxone while hospitalized and ultimately discharged home on Keflex for another 9 days. In terms of the obstructing renal calculi, the patient underwent percutaneous nephrostomy tube placement with Dr. Christie. This has been draining clear yellow urine with some debris. The patient has been instructed to flush the nephrostomy tube with 10 mL of sterile saline twice daily. The patient was seen briefly by Urology, who indicated that she would need lithotripsy treatment to the stone. At this point, Urology had no more to offer other than treating the urinary tract infection and continue with a nephrostomy tube. The patient has been instructed to contact Dr. Rm's office on this coming Friday to make an appointment for this coming week or early the following week. On the day of discharge, the patient is awake, alert, and oriented, sitting up in bed, in no acute distress. Her cardiac exam reveals a normal S1, S2 with a regular rate and rhythm. Her lungs are clear. Her abdomen is soft, nontender, nondistended. She is able to ambulate with a fluid stable gait. FOLLOWUP CONCERNS: The patient is being discharged home today, 03/28/18. ACTIVITY LEVEL: As tolerated. I have provided an out of work note for the patient for the next 3 weeks due to the fact that it will be at least 2 weeks before she can have the lithotripsy performed and as she is a warehouse incentive selector, I will be concerned that the nephrostomy tube could be pulled out. CONDITION ON DISCHARGE: Improved and stable. DIET: Regular. The patient has been instructed to follow up with Dr. Rm next week or early the following week. I have also left a message for the hospitalist coordinator to make an appointment for the patient with the [facility] and schedule with a new primary care provider. TIME SPENT: 35 minutes were spent discharging this patient. [id number]/[facility] #: [id number] MTDD
== END 2018-03-28 14:15 | disposition home or self-care (01) | DRG 710 ==
LOC: ED 13:41 → ICU 16:31 → SSU 03-25 17:28
PROVIDERS: ADMIT Internal Medicine; ATTEND Hospitalist
PROC: 0T9330Z Drainage of Right Kidney Pelvis with Drainage Device, Percutaneous Approach (ICD-10-PCS; principal; 2018-03-24)
DX: A41.51 Sepsis due to Escherichia coli [E. coli] (principal); N13.6 Pyonephrosis; B96.20 Unspecified Escherichia coli [E. coli] as the cause of diseases classified elsewhere; E05.20 Thyrotoxicosis with toxic multinodular goiter without thyrotoxic crisis or storm; F41.9 Anxiety disorder, unspecified; F17.210 Nicotine dependence, cigarettes, uncomplicated; R65.20 Severe sepsis without septic shock; D69.6 Thrombocytopenia, unspecified; Z98.51 Tubal ligation status; Z72.89 Other problems related to lifestyle
CPT/HCPCS: 36415; 50432; 71045; 74176; 80048; 80053; 81003; 83605; 83735; 84484; 84702; 85025; 85610; 85730; 86140; 87040; 87641; 90686; 93005; 99284; A9270-GY; C1729; C1769; J0696; J1885; J2270; J2310; J2405; J2543; J3010; Q9967